=== PATIENT | female | born 1955 | race Caucasian/White ===

== ENCOUNTER 2017-03-18 12:16 | Day surgery (SDC) | payer OTHER ==
[2017-02-28 08:45] VITALS: BMI 30.1
[2017-03-18] MEDS ORDERED: cefTRIAXone IV 1 gm in Dextros 50 ML IVPB ONE (15:04)
[2017-03-18] MEDS ORDERED: Lactated Ringer's 1,000 ML IV ONE ×3 (15:05→15:46)
[2017-03-18] MEDS ORDERED: Iohexol 240 200 ML IJ ONE (15:12)
[2017-03-18] MEDS ORDERED: Midazolam 2 MG/2 ML VIAL ONE (15:18)
[2017-03-18] MEDS ORDERED: Propofol 10 mg/ml Inj (20 ML) ONE ×2 (15:19→15:35)
[2017-03-18] MEDS ORDERED: Oxycodone/Acetaminophen 5/325 mg Tab PO PRN (15:49)
[2017-03-18] MEDS ORDERED: HYDROmorphone 0.5 mg/0.5 ml ISec IVP PRN (15:53)
[2017-03-18 17:08] VITALS: BP 127/61; PULSE 64; RESP 18; TEMP 97.5; O2SAT 98
--- NOTE | 2017-03-19 12:11 | RAD ---
HISTORY: BLADDER FISTULA COMPARISON: No prior. FINDINGS: BOWEL: Normal. No obstruction. No free air. BONES: Normal. OTHER FINDINGS: Surgical clips right upper quadrant and pelvis. IMPRESSION: No significant or acute findings to account for/ related to the clinical presentation. Additional benign and/or incidental findings described above.
--- NOTE | 2017-03-19 12:20 | RAD ---
PROCEDURE: Intraoperative Fluoroscopy. HISTORY: BLADDER FISTULA FINDINGS: Fluoroscopic assistance was provided for cystogram. Total fluoroscopic time (continuous mode) utilized during the procedure: 4.2 seconds.. Please refer to the operative report from during performance of the procedure. Submitted images from the current procedure: 8.0.
--- NOTE | 2017-04-07 08:27 | OP ---
PROCEDURE DATE: 03/18/2017 PREOPERATIVE DIAGNOSES: Voiding dysfunction, frequency, urgency, hematuria, occasional incontinence. POSTOPERATIVE DIAGNOSES: Voiding dysfunction, frequency, urgency, hematuria, occasional incontinence. PROCEDURE: Exam under anesthesia, cystoscopy, cystogram, bladder biopsy and fulguration. ESTIMATED BLOOD LOSS: Less than 10 mL DRAINS: None. COMPLICATIONS: There were no complications. SPECIMEN: cytology and also bladder biopsy. INDICATIONS: See history and physical for further details. This is a very pleasant lady here for the above testing. FINDINGS: 1. The bladder mucosa is somewhat erythematous and we did a biopsy and fulgurated the area. 2. Ureteral orifices are otherwise unremarkable. 3. No definite bladder tumor is identified. 4. This is abnormal mucosa. See the pictures. The entire procedure was done with the camera and x-rays studies. DESCRIPTION OF PROCEDURE: After obtaining informed consent, the patient placed on a table. Routine monitors were placed. Time-out was called. We confirmed the patient, positioning, etc. Now we introduced the cystoscope via the urethra, the ureter was identified. The bladder mucosa was inspected carefully. I do want to mention, the cystogram was relatively within normal limits. There is no evidence of reflex of light. I did a biopsy and fulguration for abnormal lesion. Pictures were taken and saved. To rule out any abnormalities, particularly to make sure there is no malignancy seen. Overall, the patient tolerated the procedure well without complication. Bladder was emptied, cystoscope was removed. Exam reveals normal external genitalia, no pelvic or rectal masses. Mild cystocele is noted, appreciated. Garth Lassiter MD
--- NOTE | 2017-04-07 08:28 | HP ---
UROLOGY HISTORY AND PHYSICAL REASON FOR ADMISSION: Workup voiding dysfunction and hematuria. HISTORY OF PRESENT ILLNESS: Very pleasant lady who comes into the hospital today. We discussed option and location for workup including the office including other locations where her insurance will cover where she has been and where she is able to get socially with transportation, etc. The patient has voiding dysfunction, frequency, urgency, nocturia, occasional incontinence, and hematuria and she is here today for further diagnostic studies (we are going to plan eventually, if the patient will allow, for a possible urodynamics. The patient is being brought in today for a cystoscopy, cystogram, and possible biopsy and fulguration. PAST MEDICAL AND SURGICAL HISTORY: As is listed on the chart. No history of an KS and CVA. SOCIAL HISTORY: Essentially unremarkable. MEDICATIONS: See the chart. ALLERGIES: SEE IN CHART. PHYSICAL EXAMINATION: GENERAL: A well-nourished female, in no apparent distress. VITAL SIGNS: Within normal limits included in the chart. LUNGS: Clear. HEART: Normal S1 and S2. ABDOMEN: Overall soft, nontender. PELVIS: Deferred in 12-systems, but I will mention now, no pelvic or rectal masses. Mild cystocele noted. DIAGNOSES: Voiding dysfunction, frequency, urgency, decreased voiding stream. We discussed options. The patient is here today. The plan will be as follows: 1. Cystoscopy. 2. Cystogram. 3. Bladder biopsy and fulguration and then further plans will follow. Much have been explained to the patient in great length, risks, benefits, and alternatives. We will plan to proceed. Garth Lassiter MD
== END 2017-03-18 18:00 | disposition home or self-care (01) ==
LOC: C.SDS 12:16
PROVIDERS: ATTEND Urology
DX: R31.29 Other microscopic hematuria (principal); R32 Unspecified urinary incontinence
CPT/HCPCS: 52204; 74000; 82948; 88305; J0696; J1580; J7120